=== PATIENT | female | born 1980 | race Caucasian/White ===

== ENCOUNTER 2021-02-22 00:46 | Emergency (ER) | payer MEDICARE ==
[2021-02-22 01:03] VITALS: O2SAT 96
[2021-02-22] MEDS ORDERED: solu-MEDROL 125 MG, Sterile H2O 10 ml 2 ML IM ONE ×2 (01:13)
[2021-02-22] MEDS ORDERED: TORAdol 30 mg Injection IM ONE (01:13)
[2021-02-22] MEDS ORDERED: BENADRYL 50 MG/ML IM ONE (01:13)
--- NOTE | 2021-02-22 01:13 | ERPHSYRPT ---
- History of Present Illness Time Seen by Provider: 02/22/21 01:00 Source: patient Exam Limitations: no limitations Patient Subjective Stated Complaint: pt states she has had a migraine for the last 2.5 days. states pain is in the front of her head right now. describes as throbbing and rates 8/10. states this feels like one of her usual migraines Triage Nursing Assessment: pt alert and oriented, answers questions approp. pt ambulatory with steady gait noted. respirations nonlabored. skin pink warm and dry. pupils equal and reactve. bilat upper and lower ext strength equal and wnl. Physician History: This is an obese 41-year-old white female patient has a history of frequent migraine headaches. She states that this headache has been there for 2-1/2 days. She denies any head injury. It is her typical migraine headache. It is currently in the frontal area and is achy and throbbing. She states what worked for her last time is a combination of Benadryl, Toradol and steroid injection. She has no vision loss. Again, she states this headache is the same location and type as her prior migraine headaches. Timing/Duration: day(s) (2.5) Quality: aching, throbbing Head Pain Location: frontal Severity of Pain-Max: moderate Severity of Pain-Current: moderate Recent Head Trauma: no recent headache/trauma, frequent headaches Modifying Factors: Improves With: exposure to light, noise Associated Symptoms: sensitive to light Previous symptoms: same symptoms as today Allergies/Adverse Reactions: erythromycin base [Erythromycin Base] Allergy (Mild, Verified 02/22/21 01:04) Nausea and Vomiting iodine Allergy (Mild, Verified 02/22/21 01:04) Hives Penicillins Allergy (Mild, Verified 02/22/21 01:04) Hives Sulfa (Sulfonamide Antibiotics) [Sulfa(Sulfonamide Antibiotics)] Allergy (Mild, Verified 02/22/21 01:04) Hives Home Medications: No Reportable Medications [No Reported Medications] 02/22/21 [History] Hx Tetanus, Diphtheria Vaccination/Date Given: Yes Hx Influenza Vaccination/Date Given: No Hx Pneumococcal Vaccination/Date Given: No Immunizations Up to Date: Yes Travel Risk - International Travel Have you traveled outside of the country in past 3 weeks: No - Coronavirus Screening Are you exhibiting any of the following symptoms?: No Close contact with a COVID-19 positive Pt in past 14-21 Days: No - Vaccine Status Have you recieved a Covid-19 vaccination: No - Review of Systems Constitutional: No Symptoms Eyes: No Symptoms Ears, Nose, & Throat: No Symptoms Respiratory: No Symptoms Cardiac: No Symptoms Abdominal/Gastrointestinal: No Symptoms Genitourinary Symptoms: No Symptoms Musculoskeletal: No Symptoms Skin: No Symptoms Neurological: Headache Psychological: No Symptoms Endocrine: No Symptoms Hematologic/Lymphatic: No Symptoms Immunological/Allergic: No Symptoms All Other Systems: Reviewed and Negative - Past Medical History Pertinent Past Medical History: Yes Neurological History: Migraines ENT History: No Pertinent History Cardiac History: Hypertension Respiratory History: No Pertinent History Endocrine Medical History: No Pertinent History Musculoskeletal History: No Pertinent History GI Medical History: No Pertinent History History: No Pertinent History Psycho-Social History: Other Female Reproductive Disorders: No Pertinent History Other Medical History: MENTALLY CHALLENGED. - Past Surgical History Past Surgical History: Yes Neuro Surgical History: No Pertinent History Cardiac: No Pertinent History Respiratory: No Pertinent History Gastrointestinal: No Pertinent History Genitourinary: No Pertinent History Musculoskeletal: Orthopedic Surgery Female Surgical History: No Pertinent History Other Surgical History: hand and nose surgery - Social History Smoking Status: Never smoker Exposure to second hand smoke: No Drug Use: none Patient Lives Alone: No - Female History Hx Last Menstrual Period: 3.5 weeks Hx Now: No - Nursing Vital Signs Nursing Vital Signs: Initial Vital Signs Temperature 98.2 F 02/22/21 00:51 Pulse Rate 79 02/22/21 00:51 Respiratory Rate 16 02/22/21 00:51 Blood Pressure 148/89 02/22/21 00:51 O2 Sat by Pulse Oximetry 96 02/22/21 00:51 Pain Scale Pain Intensity 8 - Physical Exam General Appearance: no apparent distress, alert, anxiety, obese Eye Exam: PERRL/EOMI, eyes nml inspection Ears, Nose, Throat Exam: normal ENT inspection, moist mucous membranes Neck Exam: normal inspection, non-tender, supple, full range of motion Respiratory Exam: airway intact, No chest tenderness, No respiratory distress Gastrointestinal/Abdominal Exam: No tenderness Back Exam: normal inspection, normal range of motion, No CVA tenderness, No ve rtebral tenderness Extremity Exam: normal inspection, normal range of motion, pelvis stable Mental Status Exam: alert, oriented x 3, 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 Exam: normal hearing, normal speech, PERRL, tongue midline Coordination/Gait Exam: normal finger to nose, normal gait, normal cerebellar function Motor/Sensory Exam: no motor deficit, no sensory deficit, no pronator drift Skin Exam: normal color, warm, dry Lymphatic Exam: No adenopathy SpO2 Interpretation: normal SpO2: 96 O2 Delivery: Room Air - Course Nursing assessment & vital signs reviewed: Yes - Progress Progress: improved Air Movement: good Counseled pt/family regarding: diagnosis, need for follow-up - Departure Departure Disposition: Home Clinical Impression: Migraine headache Condition: Stable Critical Care Time: No Referrals: JOSE JONES [Primary Care Provider] - Follow up/PCP as directed Additional Instructions: Follow-up with your primary care physician for further management and, if indicated, referral to a migraine headache specialist.
[2021-02-22] MEDS ORDERED: Sterile H2O 10 ml IJ ONE (01:17)
[2021-02-22] MEDS ORDERED: solu-MEDROL ONE (01:17)
[2021-02-22] MEDS ORDERED: BENADRYL 50 MG/ML ONE (01:17)
[2021-02-22] MEDS ORDERED: TORAdol 30 mg Injection ONE (01:17)
[2021-02-22 01:51] VITALS: BP 107/60; PULSE 75
== END 2021-02-22 01:50 | disposition home or self-care (01) ==
LOC: ED 00:46
DX: G43.009 Migraine without aura, not intractable, without status migrainosus (principal); I10 Essential (primary) hypertension
CPT/HCPCS: 96372; 99284; J1200; J1885; J2930

== ENCOUNTER 2021-07-11 16:08 | Emergency (ER) | payer MEDICARE ==
[2021-07-11 16:18] VITALS: BP 122/61; PULSE 80; O2SAT 96
[2021-07-11] MEDS ORDERED: TORAdol 30 mg Injection IM ONE (16:35)
[2021-07-11] MEDS ORDERED: TORAdol 30 mg Injection ONE (16:41)
--- NOTE | 2021-07-11 16:58 | ERPHSYRPT ---
- History of Present Illness Source: patient Exam Limitations: no limitations Patient Subjective Stated Complaint: pt here for pain to 5th right digit that radiates up arm . no injury Triage Nursing Assessment: pt alert, walked in, resp easy, skin w/d/p, face mask in place, no swelling or bruising noted to right hand Physician History: 41 yo wf w R hand pain x 2 days. Pt denies injury. Pain is worse w movement and grasping. 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 Pt denies focal weakness/chest pain/dyspnea/fever. She has never had this pain before. Pain is centered over her 4th-5th metacarpals. Occurred: days ago (2 days ago) Method of Injury: unknown (No injury) Severity of Pain-Max: moderate Severity of Pain-Current: moderate Extremities Pain Location: hand: right Modifying Factors: Improves With: movement Associated Symptoms: No back pain, No chills, No chest discomfort, No chest pain, No dyspnea, No fever, No jaw pain, No nausea, No neck pain, No sweating, No short of breath, No vomiting Allergies/Adverse Reactions: erythromycin base [Erythromycin Base] Allergy (Mild, Verified 07/11/21 16:18) Nausea and Vomiting iodine Allergy (Mild, Verified 07/11/21 16:18) Hives Penicillins Allergy (Mild, Verified 07/11/21 16:18) Hives Sulfa (Sulfonamide Antibiotics) [Sulfa(Sulfonamide Antibiotics)] Allergy (Mild, Verified 07/11/21 16:18) Hives Hx Tetanus, Diphtheria Vaccination/Date Given: No Hx Influenza Vaccination/Date Given: No Hx Pneumococcal Vaccination/Date Given: No Immunizations Up to Date: Yes Travel Risk - International Travel Have you traveled outside of the country in past 3 weeks: No - Coronavirus Screening Are you exhibiting any of the following symptoms?: No Close contact with a COVID-19 positive Pt in past 14-21 Days: No - Vaccine Status Have you recieved a Covid-19 vaccination: No - Review of Systems Constitutional: No Symptoms Eyes: No Symptoms Ears, Nose, & Throat: No Symptoms Respiratory: No Symptoms Cardiac: No Symptoms Abdominal/Gastrointestinal: No Symptoms Genitourinary Symptoms: No Symptoms Skin: No Symptoms Neurological: No Symptoms Psychological: No Symptoms Endocrine: No Symptoms Hematologic/Lymphatic: No Symptoms Immunological/Allergic: No Symptoms - Past Medical History Pertinent Past Medical History: No Neurological History: Migraines ENT History: No Pertinent History Cardiac History: Hypertension Respiratory History: No Pertinent History Endocrine Medical History: No Pertinent History Musculoskeletal History: No Pertinent History GI Medical History: No Pertinent History History: No Pertinent History Psycho-Social History: Other Female Reproductive Disorders: No Pertinent History Other Medical History: MENTALLY CHALLENGED. - Past Surgical History Past Surgical History: Yes Neuro Surgical History: No Pertinent History Cardiac: No Pertinent History Respiratory: No Pertinent History Gastrointestinal: No Pertinent History Genitourinary: No Pertinent History Musculoskeletal: Orthopedic Surgery Female Surgical History: No Pertinent History Other Surgical History: hand and nose surgery - Social History Smoking Status: Never smoker Exposure to second hand smoke: No Drug Use: none Patient Lives Alone: No Significant Family History: no pertinent family hx - Female History Hx Last Menstrual Period: 2 days ago Hx Now: No - Nursing Vital Signs Nursing Vital Signs: Initial Vital Signs Temperature 98.9 F 07/11/21 16:14 Pulse Rate 80 07/11/21 16:14 Respiratory Rate 18 07/11/21 16:14 Blood Pressure 122/61 07/11/21 16:14 O2 Sat by Pulse Oximetry 96 07/11/21 16:14 Pain Scale Pain Intensity 7 WNL - Physical Exam General Appearance: no apparent distress Eyes, Ears, Nose, Throat Exam: normal ENT inspection, TMs normal, pharynx normal, moist mucous membranes Neck Exam: normal inspection, non-tender, supple, full range of motion, No Brudzinski, No Kernig's, No meningismus, No carotid bruit Cardiovascular/Respiratory Exam: normal breath sounds, regular rate/rhythm, heart sounds normal, no respiratory distress, No murmur, No rales, No rhonchi, No decreased pulses Abdominal Exam: non-tender, soft Back Exam: normal inspection, normal range of motion, No CVA tenderness, No vertebral tenderness Shoulder Exam: normal inspection, non-tender, no evidence of injury Elbow/Forearm Exam: normal inspection, non-tender, no evidence of injury Wrist Exam: normal inspection, non-tender, no evidence of injury Hand Exam: bone tenderness (TTP over 4th-5th metacarpal/No edema/No erythema/No ecchymosis/Good radial pulse, distal sensation, and capillary return) DTR - Upper Extremity Exam: bicep (R): 2+, bicep (L): 2+, tricep (R): 2+, tricep (L): 2+ Neuro/Tendon Exam: normal sensation, normal motor functions, normal tendon functions, responds to pain, no evidence tendon injury, No motor deficit, No sensory deficit Mental Status Exam: alert, oriented x 3, cooperative Skin Exam: normal color, warm, dry SpO2 Interpretation: normal SpO2: 96 O2 Delivery: Room Air - Course Nursing assessment & vital signs reviewed: Yes - Radiology Exams Hand X-ray Interpretation: Interpreted by me (R hand neg per ER read) Ordered Tests: Active Orders 24 hr Category Date Time Status HAND (MINIMUM 3 VIEWS) Stat Exams 07/11/21 16:51 Taken Medication Summary Discontinued Medications Generic Name Dose Route Start Last Admin Trade Name Tena PRN Reason Stop Dose Admin Ketorolac Tromethamine 30 mg 07/11/21 16:35 07/11/21 16:42 Ketorolac Tromethamine 30 Mg/Ml Inj IM 07/11/21 16:36 30 mg STAT ONE Administration Ketorolac Tromethamine Confirm 07/11/21 16:41 Ketorolac Tromethamine 30 Mg/Ml Inj Administered 07/11/21 16:42 Dose 30 mg .ROUTE .STK-MED ONE - Progress Progress Note: 07/11/21 17:05 30 mg IM Toradol Jamie wrap R hand per nursing/NVI Counseled pt/family regarding: diagnosis, need for follow-up, rad results - Departure Departure Disposition: Home Clinical Impression: Tendonitis of right hand Condition: Stable Critical Care Time: No Referrals: JOSE JONES [Primary Care Provider] - Follow up/PCP as directed MICHELLE - DRAKE CHACON NP [NON-STAFF PHY W/O PRIVILEGES] - Follow up/PCP as directed Instructions: Hand Pain (DC) Additional Instructions: Jamie wrap for 2-3 days Follow up in orthopedic clinic on Monday or Monday 8-10:00 AM Etodolac as needed for pain Forms: Work/School Release Form Prescriptions: Etodolac 400 mg PO BID PRN #10 tablet PRN Reason: Pain
--- NOTE | 2021-07-11 18:39 | XRAY ---
Indication: Pain. No known injury. Comparison: June 21, 2012. 3 view right hand obtained. No bony, articular, or soft tissue abnormalities.
== END 2021-07-11 17:23 | disposition home or self-care (01) ==
LOC: ED 16:08
DX: M77.8 Other enthesopathies, not elsewhere classified (principal); M79.641 Pain in right hand; I10 Essential (primary) hypertension
CPT/HCPCS: 73130; 96372; 99284; J1885

== ENCOUNTER 2022-04-07 21:38 | Emergency (ER) | payer MEDICARE ==
[2022-04-07] MEDS ORDERED: BENADRYL 50 MG/ML IM ONE (22:03)
[2022-04-07] MEDS ORDERED: TYLENOL 325 MG PO ONE (22:03)
[2022-04-07] MEDS ORDERED: Reglan 10 MG/2 ML IM ONE (22:03)
[2022-04-07] MEDS ORDERED: TORAdol 30 mg Injection IM ONE (22:03)
[2022-04-07] MEDS ORDERED: BENADRYL 50 MG/ML ONE (22:07)
[2022-04-07] MEDS ORDERED: Reglan 10 MG/2 ML ONE (22:07)
[2022-04-07] MEDS ORDERED: TORAdol 30 mg Injection ONE (22:07)
[2022-04-07] MEDS ORDERED: TYLENOL 325 MG ONE (22:07)
--- NOTE | 2022-04-07 22:16 | ERPHSYRPT ---
- History of Present Illness Time Seen by Provider: 04/07/22 21:41 Source: patient Exam Limitations: no limitations Patient Subjective Stated Complaint: pt states I have had a headache all day. I have had one every night for the past 4 nights. 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 No difficulty movements of neck, fever or chills. Headache is similar to previous and does not think this is the worst headache of her life. She has taken her routine medications for migraine and has minimal improvement. No numbness tingling or focal weakness. Timing/Duration: day(s) (4), constant, gradual onset, worse Quality: sharpness Head Pain Location: frontal, temporal, parietal Severity of Pain-Max: severe Severity of Pain-Current: severe Recent Head Trauma: frequent headaches Modifying Factors: Improves With: medication. Worsens With: exposure to light Associated Symptoms: nausea/vomiting, sensitive to light, No confusion, No dizziness, No fatigue, No facial pain, No fever/chills, No flushing, No light- headedness, No loss of consciousness, No nasal congestion, No nasal drainage, No neck pain, No numbness in legs/feet, No rash, No sweating, No scotoma, No seiz ures, No sinus infection, No speech problems, No stiff neck, No trouble walking, No vision changes, No visual disturbance, No weakness Previous symptoms: same symptoms as today Allergies/Adverse Reactions: erythromycin base [Erythromycin Base] Allergy (Mild, Verified 04/07/22 21:44) Nausea and Vomiting iodine Allergy (Mild, Verified 04/07/22 21:44) Hives Penicillins Allergy (Mild, Verified 04/07/22 21:44) Hives Sulfa (Sulfonamide Antibiotics) [Sulfa(Sulfonamide Antibiotics)] Allergy (Mild, Verified 04/07/22 21:44) Hives Home Medications: AMITRIPTYLINE HCL 50 mg Tab [AMITRIPTYLINE HCL 50 mg Tablet] 100 mg PO HS 04/07/22 [History] Rizatriptan Benzoate [Rizatriptan] 10 mg PO 04/07/22 [History] Hx Tetanus, Diphtheria Vaccination/Date Given: No Hx Influenza Vaccination/Date Given: No Hx Pneumococcal Vaccination/Date Given: No Travel Risk - International Travel Have you traveled outside of the country in past 3 weeks: No - Coronavirus Screening Are you exhibiting any of the following symptoms?: No Close contact with a COVID-19 positive Pt in past 14-21 Days: No - Vaccine Status Have you recieved a Covid-19 vaccination: No - Review of Systems Constitutional: No Symptoms Eyes: No Symptoms Ears, Nose, & Throat: No Symptoms Respiratory: No Symptoms Cardiac: No Symptoms Abdominal/Gastrointestinal: Nausea, Vomiting Genitourinary Symptoms: No Symptoms Musculoskeletal: No Symptoms Skin: No Symptoms Neurological: Headache Psychological: No Symptoms Endocrine: No Symptoms Hematologic/Lymphatic: No Symptoms Immunological/Allergic: No Symptoms - Past Medical History Pertinent Past Medical History: Yes Neurological History: Migraines ENT History: No Pertinent History Cardiac History: Hypertension Respiratory History: No Pertinent History Endocrine Medical History: No Pertinent History Musculoskeletal History: No Pertinent History GI Medical History: No Pertinent History History: No Pertinent History Psycho-Social History: Other Female Reproductive Disorders: No Pertinent History Other Medical History: MENTALLY CHALLENGED. - Past Surgical History Past Surgical History: Yes Neuro Surgical History: No Pertinent History Cardiac: No Pertinent History Respiratory: No Pertinent History Gastrointestinal: No Pertinent History Genitourinary: No Pertinent History Musculoskeletal: Orthopedic Surgery Female Surgical History: No Pertinent History Other Surgical History: hand and nose surgery - Social History Smoking Status: Never smoker Exposure to second hand smoke: No Drug Use: none Patient Lives Alone: No Significant Family History: no pertinent family hx - Female History Hx Now: No - Nursing Vital Signs Nursing Vital Signs: Initial Vital Signs Temperature 97.7 F 04/07/22 21:44 Pulse Rate 68 04/07/22 21:44 Respiratory Rate 18 04/07/22 21:44 Blood Pressure 151/77 04/07/22 21:44 O2 Sat by Pulse Oximetry 97 04/07/22 21:44 Pain Scale Pain Intensity 8 - Physical Exam General Appearance: no apparent distress, alert Eye Exam: PERRL/EOMI Ears, Nose, Throat Exam: normal ENT inspection, TMs normal, pharynx normal, moist mucous membranes Neck Exam: normal inspection, non-tender, supple, full range of motion Respiratory Exam: normal breath sounds, lungs clear Cardiovascular Exam: regular rate/rhythm, normal heart sounds Gastrointestinal/Abdominal Exam: soft, No tenderness Back Exam: normal inspection, normal range of motion Extremity Exam: normal inspection, normal range of motion Mental Status Exam: alert, oriented x 3, 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 Exam: normal hearing, normal speech, PERRL Coordination/Gait Exam: normal finger to nose, normal gait, normal cerebellar function Motor/Sensory Exam: no motor deficit, no sensory deficit, no pronator drift, negative Babinski's sign DTR Exam: bicep (R): 2+, bicep (L): 2+, knee (R): 2+, knee (L): 2+ Skin Exam: normal color SpO2 Interpretation: normal SpO2: 97 O2 Delivery: Room Air Ordered Tests: Medication Summary Discontinued Medications Generic Name Dose Route Start Last Admin Trade Name Tena PRN Reason Stop Dose Admin Acetaminophen 975 mg 04/07/22 22:03 04/07/22 22:08 Acetaminophen 325 Mg Tablet PO 04/07/22 22:04 975 mg STAT ONE Administration Acetaminophen Confirm 04/07/22 22:07 Acetaminophen 325 Mg Tablet Administered 04/07/22 22:08 Dose 975 mg .ROUTE .STK-MED ONE Diphenhydramine HCl 50 mg 04/07/22 22:03 04/07/22 22:09 Diphenhydramine Hcl 50 Mg/Ml Vial IM 04/07/22 22:04 50 mg STAT ONE Administration Diphenhydramine HCl Confirm 04/07/22 22:07 Diphenhydramine Hcl 50 Mg/Ml Vial Administered 04/07/22 22:08 Dose 50 mg .ROUTE .STK-MED ONE Ketorolac Tromethamine 30 mg 04/07/22 22:03 04/07/22 22:09 Ketorolac Tromethamine 30 Mg/Ml Inj IM 04/07/22 22:04 30 mg STAT ONE Administration Ketorolac Tromethamine Confirm 04/07/22 22:07 Ketorolac Tromethamine 30 Mg/Ml Inj Administered 04/07/22 22:08 Dose 30 mg .ROUTE .STK-MED ONE Metoclopramide HCl 10 mg 04/07/22 22:03 04/07/22 22:09 Metoclopramide Hcl 10 Mg/2 Ml Vial IM 04/07/22 22:04 10 mg STAT ONE Administration Metoclopramide HCl Confirm 04/07/22 22:07 Metoclopramide Hcl 10 Mg/2 Ml Vial Administered 04/07/22 22:08 Dose 10 mg .ROUTE .STK-MED ONE - Progress Progress: improved, re-examined Air Movement: good Progress Note: 04/07/22 23:24 42 years old with history of migraine poorly controlled presented in the ER with headache for the last 4 days with nonfocal neuro exam. Has some nausea with 1 episode of vomiting. Headache is similar to previous and does not think this is the worst headache of her life. No focal numbness tingling or weakness. She is given Toradol Reglan and Benadryl, on reevaluation her headache is completely resolved. do not think she needs imaging or any other work-up and is stable for discharge with outpatient follow-up with primary care and neurology. Discussed signs symptoms of worsening needing return to ER which he seems understanding. Blood Culture(s) Obtained: No Antibiotics given: No Counseled pt/family regarding: diagnosis, need for follow-up - Departure Departure Disposition: Home Clinical Impression: Migraine headache Condition: Stable Critical Care Time: No Referrals: JOSE JONES [Primary Care Provider] - Follow up/PCP as directed (1-2 days for reevaluation) TAYLOR SONI DO [NON-STAFF PHY W/O PRIVILEGES] - Follow up/PCP as directed (1-2 days for reevaluation) Instructions: Migraines (DC) Additional Instructions: Take Tylenol/ibuprofen as needed along with your routine migraine medications. Follow-up with primary care and neurology for reevaluation. Return to ER for intractable headache, visual disturbance, numbness tingling focal weakness etc.
[2022-04-07 23:19] VITALS: BP 115/68; PULSE 74; O2SAT 98
== END 2022-04-07 23:19 | disposition home or self-care (01) ==
LOC: ED 21:38
DX: G43.909 Migraine, unspecified, not intractable, without status migrainosus (principal); H53.143 Visual discomfort, bilateral; R11.2 Nausea with vomiting, unspecified; I10 Essential (primary) hypertension; Z79.899 Other long term (current) drug therapy; Z28.310 Unvaccinated for COVID-19
CPT/HCPCS: 96372; 99283; J1200; J1885; A9270-GY